=== PATIENT | male | born 1985 | race Caucasian/White ===

== ENCOUNTER 2021-02-06 01:46 | Emergency (ER) | payer SELFPAY ==
[~2021-02-06] VITALS: Ht 195.6 cm; Wt 109.0 kg
--- NOTE | 2021-02-06 01:50 | PHYS DOC ---
Adult General Chief Complaint Chief Complaint: UPPER EXTREMITY INJURY HPI HPI Patient is a 36-year-old male who presents for left hand injury. Reports walking up stairs and falling forward up the stairs where he braced his fall with a closed left fist. Reports swelling and focal pain over left metacarpal area. Patient took 800 mg ibuprofen and immediately presented to our ER for evaluation. No fever, recent sick contacts, known medical diagnoses, history of abnormal bone disorders Review of Systems Review of Systems Fourteen body systems of review of systems have been reviewed. See HPI for pertinent positives and negative responses, other del angel all other systems are negative, non-pertinent or non-contributory Physical Exam Physical Exam Constitutional: Well developed, well nourished, no acute distress, non-toxic appearance. HENT: Normocephalic, atraumatic, bilateral external ears normal, oropharynx moist, no oral exudates, nose normal. Eyes: PERRLA, EOMI, conjunctiva normal, no discharge. Neck: Normal range of motion, no tenderness, supple, no stridor. Cardiovascular: Heart rate regular per monitor Lungs & Thorax: No respiratory distress or accessory muscle use, bilateral chest rise Abdomen: Abdomen soft, non-tender, bowel sounds present in all quadrants, no guarding or rebound, nonacute abdomen. Skin: Warm, dry, no erythema, no rash. Back: No tenderness, no CVA tenderness. Extremities: No cyanosis, no clubbing, ROM intact, no edema. Left hand isolated, median ulnar and radial nerves fully intact. No motor or sensory function changes. Patient has noticeable edema and tenderness with palpation over entire fifth metacarpal bone, cap refill less than 3 seconds in all digits, no anatomical snuffbox tenderness, unremarkable left elbow exam Neurologic: Alert and oriented X 3, grossly normal motor & sensory function, no focal deficits noted. Psychologic: Affect normal, judgement normal, mood normal. Current Patient Data Vital Signs Vital Signs Date Time Temp Pulse Resp B/P (MAP) Pulse Ox O2 Delivery O2 Flow Rate FiO2 02/06/21 01:54 99.5 71 18 117/63 (81) 96 Room Air EKG EKG [] Radiology/Procedures Radiology/Procedures PROCEDURE: HAND LEFT 3V Left hand x-rays 3 views HISTORY: Fall, both and injury, medial hand pain and swelling. FINDINGS: Acute traumatic mildly buckled fracture of the base of the fifth metacarpal. Small calcification densities between the bases of the third, fourth and fifth metacarpals could be small avulsion fractures. No dislocation. There is soft tissue swelling of the medial hand overlying the fifth metacarpal at the hypothenar evidence. IMPRESSION: Acute traumatic buckle fracture at the base of the fifth metacarpal. There may be tiny cortical avulsion fractures between the bases of the third, fourth and fifth metacarpals. Medial hand soft tissue swelling. See above. Electronically signed by: David Mercedes MD (02/06/2021 2:09 AM) [facility] Heart Score C/O Chest Pain: No Risk Factors: Risk Factors: DM, Current or recent (<one month) smoker, HTN, HLP, family history of CAD, obesity. Risk Scores: Risk Factors: DM, Current or recent (<one month) smoker, HTN, HLP, family history of CAD, obesity. Course & Med Decision Making Course & Med Decision Making Hemodynamically stable patient with history of fall to a closed wrist, question mechanism was fall versus punching something? Physical exam with palpable and visual abnormality over base of left fifth metacarpal bone. Radiograph confirming buckle fracture of left fifth metacarpal Discussed next steps of care with patient. Discussed this was not a surgical emergency; however, close outpatient orthopedic follow-up is important. Patient splinted appropriately while in ER and was reevaluated by myself and deemed neurovascularly intact. Splint care and continued supportive care practices were educated at length with good understanding by patient, all questions and concerns addressed prior to ER departure in stable condition Dragon Disclaimer Dragon Disclaimer This electronic medical record was generated, in whole or in part, using a voice recognition dictation system. Departure Departure: Impression: Primary Impression: Fracture of fifth metacarpal bone of left hand Disposition: 01 DC HOME SELF CARE/HOMELESS Condition: STABLE Referrals: KYRIE GEE MD Patient Instructions: Cast or Splint Care, Hand Fracture, Fifth Metacarpal Additional Instructions: As discussed prior to your departure, you were diagnosed with a buckle fracture of the left fifth metacarpal bone. This is not a surgical emergency; however, it is vital that you follow-up with your primary care physician and orthopedic physician for repeat evaluation. Please utilize NSAIDs and/or Tylenol for pain as needed. If any concerning signs or symptoms present prior to your departure please do not hesitate to come back for repeat evaluation. It was a pleasure to take care of you and I wish you a speedy recovery JEREMIAH CONTRERAS DO Feb 06, 2021 01:50
[2021-02-06 01:54] VITALS: BP 117/63
--- NOTE | 2021-02-06 02:11 | RAD ---
Left hand x-rays 3 views HISTORY: Fall, both and injury, medial hand pain and swelling. FINDINGS: Acute traumatic mildly buckled fracture of the base of the fifth metacarpal. Small calcific ation densities between the bases of the third, fourth and fifth metacarpals could be small avulsion fractures. No dislocation. There is soft tissue swelling of the medial hand overlying the fifth metac arpal at the hypothenar evidence. IMPRESSION: Acute traumatic buckle fracture at the base of the fifth metacarpal. There may be tiny co rtical avulsion fractures between the bases of the third, fourth and fifth metacarpals. Medial hand s oft tissue swelling. See above. Electronically signed by: David Mercedes MD (02/06/2021 2:09 AM) [facility]
[2021-02-06] MEDS ORDERED: ACETAMINOPHEN 325 MG TABLET PO ONE (02:15)
== END 2021-02-06 02:46 | disposition home or self-care (01) ==
LOC: ER 01:46
DX: S62.317A Displaced fracture of base of fifth metacarpal bone, left hand, initial encounter for closed fracture (principal); W10.8XXA Fall (on) (from) other stairs and steps, initial encounter; Y93.89 Activity, other specified; Y92.89 Other specified places as the place of occurrence of the external cause; Y99.8 Other external cause status
CPT/HCPCS: 29125; 73130; 99283